=== PATIENT | female | born 1980 | race Caucasian/White ===

== ENCOUNTER → 2018-04-03 14:41 | Outpatient (CLI) | payer BC, SELFPAY ==
[2018-04-11 13:00] LABS: HPV Reflexed? NOT INDICATED
== END ==
PROVIDERS: Visit Provider Obstetrics & Gynecology
DX: Z12.4 Encounter for screening for malignant neoplasm of cervix (principal)
CPT/HCPCS: 88175; G0145

== ENCOUNTER 2024-09-29 10:55 | Emergency (ER) | payer BC, SELFPAY ==
[2024-09-29 10:55] VITALS: BP 147/84; PULSE 100; RESP 16; TEMP 36.8; O2SAT 100; BMI 24.8
--- NOTE | 2024-09-29 11:14 | EKG12_ITS ---
Test Reason : CHESTPAIN Blood Pressure : */* mmHG Vent. Rate : 95 BPM Atrial Rate : 95 BPM P-R Int : 140 ms QRS Dur : 78 ms QT Int : 360 ms P-R-T Axes : 59 71 57 degrees QTcB Int : 452 ms Normal sinus rhythm Normal ECG Confirmed by ANDREIA SOTO, AMANDA ([id number]), technical writer and editor TORI HINES ([id number]) on 10/01/2024 2:15:24 PM Referred By: Leandro Malagon Confirmed By: AMANDA BOSWELL MD
--- NOTE | 2024-09-29 11:14 | ED.VIS.CHEST ---
HPI History of Present Illness Chief Complaint: Chest Pain Informant: patient and spouse/S.O. Narrative Narrative: 44-year-old female presenting to the emergency room for chest discomfort. Patient states on Saturday she had an episode of vomiting. The week before that she felt generalized fatigue and not well. She states that she went to urgent care was told because she was experiencing some epigastric upper chest discomfort she come to emergency. She did not come until today. Patient states she feels her heart beating strongly and fast. She denies any pleuritic pain. No diarrhea. No further vomiting. She is otherwise been eating okay. She states that she is otherwise healthy not taking any current medications. No DVT PE risk factors. No reported fever. PFSH PFSH Medical History no medical history Home Medications ?Medication ?Instructions ?Recorded ?Last Taken ?Type famotidine 20 mg tablet (Pepcid) 20 mg PO BID 14 days #28 tabs 09/29/24 Unknown Rx Allergy/AdvReac Type Severity Reaction Status Date / Time No Known Allergies Allergy Verified 09/29/24 10:55 Family History no significant family his Surgical History no surgical history Social History Smoking Status: Never smoker ROS ROS ED ROS Narrative Generalized fatigue Constitutional Constitutional ED: Denies chills or weight loss Eyes Eyes: Denies change in vision or diplopia ENT ENT ED: Denies ear pain, rhinorrhea or sore throat Cardiovascular Cardiovascular: Reports chest pain and racing heartbeat; Denies orthopnea or palpitations Respiratory/Chest Respiratory/Chest: Denies cough, dyspnea or orthopnea Gastrointestinal Gastrointestinal: Reports abdominal pain, nausea and vomiting; Denies diarrhea Genitourinary Genitourinary ED: Denies dysuria, hematuria or urinary frequency Musculoskeletal Musculoskeletal: Denies arthralgias or myalgias Integumentary Denies abscess or rash Neurologic Neurologic: Denies headache(s) or weakness Psychiatric Psychiatric: Denies anxiety, depression, suicidal ideation or suicidal thoughts Endocrine Endocrinology: Denies polydipsia, polyphagia or polyuria Allergic/Immunologic Allergic/Immunologic ED: Denies mouth swelling, tongue swelling or urticaria EXAM Physical Exam Const Vital Signs: 09/29/24 10:55 09/29/24 11:09 09/29/24 12:55 Temperature 98.3 F Temperature Source Oral Pulse Rate 100 89 Respiratory Rate 16 Respiratory Effort Normal Non-Labored Blood Pressure 147/84 H 138/72 H Blood Pressure Mean 105 94 Pulse Ox 100 98 Oxygen Delivery Method Room Air 09/29/24 14:01 Temperature 97.6 F L Temperature Source Pulse Rate 89 Respiratory Rate 18 Respiratory Effort Blood Pressure 138/72 H Blood Pressure Mean 94 Pulse Ox 98 Oxygen Delivery Method MDM MDM MDM Narrative Medical decision making narrative: Differential diagnosis includes but not limited to esophagitis acute coronary syndrome pulmonary embolism aortic dissection pneumonia pleural effusion pleurisy pericarditis gastritis pancreatitis EKG is normal sinus rhythm ventricular rate of 95 bpm. Troponin is normal at less than 3 lipase 37 normal LFTs. BMP with a potassium 3.4 normal creatinine. Hemoglobin 11.1 normal white count 9.6. D-dimer is elevated 1.39. Because of the chest pain and the elevated D-dimer a CTA of the chest was obtained which is negative for pulmonary embolism. Please see radiologist read for full details including discussion of pulmonary nodules. Difficult to say exactly what is causing the patient's symptoms better do not see any emergent cause at this time. Not seeing evidence of dissection embolism cardiac dysrhythmia ACS pneumonia effusion. We talked about taking a Pepcid twice a day and monitoring for symptoms and follow-up or return if worsening or concerns patient and her are comfortable with this plan History & Record Review Discussion w/independent historian: Patient and Significant other Lab Data Attestation: I reviewed the patient's lab results. Labs: Laboratory Results - last 24 hr 09/29/24 11:07 WBC 9.6 RBC 4.07 L Hgb 11.1 L Hct 34.2 L MCV 84.0 MCH 27.3 MCHC 32.5 RDW Std Deviation 42.4 RDW Coeff of Matthew 13.9 Plt Count 466 H MPV 9.8 Immature Gran % (Auto) 0.600 Neut % (Auto) 78.7 H Lymph % (Auto) 15.9 L [place] % (Auto) 3.8 Eos % (Auto) 0.4 Baso % (Auto) 0.6 Absolute Neuts (auto) 7.5 Absolute Lymphs (auto) 1.52 Nucleated RBC % 0 D-Dimer Quant (PE/DVT) 1.39 H* Sodium 141 Potassium 3.4 L Chloride 110 H Carbon Dioxide 27.0 Anion Gap 5 BUN 9 Creatinine 0.89 Estim Creat Clear Calc 75.51 Est GFR (MDRD) Af Amer 89 Est GFR (MDRD) Non-Af 74 BUN/Creatinine Ratio 10.2 Glucose 93 Calcium 8.9 Total Bilirubin 0.40 Direct Bilirubin 0.10 AST 24 ALT 40 Alkaline Phosphatase 90 Troponin I High Sens < 3 L Total Protein 7.9 Albumin 3.5 Globulin 4.4 H Lipase 37 Radiography Diagnostic Testing: Clinical Impression(s) from Imaging Studies Chest X-Ray 09/29/24 11:22 IMPRESSION: Normal x-ray examination of the chest. Electronically Signed: Chance Duffy MD at 12:03 EST , Chest CTA 09/29/24 11:43 IMPRESSION: No evidence of pulmonary embolism. Small pulmonary nodules measuring up to 5 mm in the right lower lobe. Fleischner Society Guidelines suggest no follow-up is necessary for patients with a low or high risk of malignancy. Electronically Signed: Saranya Benítez MD at 12:45 EST , EKG Initial EKG: Attestation: I personally reviewed and interpreted this EKG as follows: Comments: Normal sinus rhythm ventricular rate of 95 bpm. Discharge Plan Triage Chief Complaint: Chest Pain ED Provider: Leandro Malagon Dx/Rx/DC Orders Clinical Impression: Chest pain Instructions: ED Chest Pain, Noncardiac Prescriptions: New famotidine [Pepcid] 20 mg tablet 20 mg PO BID 14 Days Qty: 28 0RF Primary Care Provider: Care Physician,No Primary Referrals: Care Physician,No Primary [Primary Care Provider] - Activity Restrictions/Additional Instructions: Please monitor the stool to see if it becomes black or tarry. I would recommend Pepcid twice a day for 1 to 2 weeks. If new symptoms are worsening please return to emergency or follow-up with primary care Print Language: Other Disposition Disposition: Home, Self Care Discharge Date/Time: 09/29/24 14:10
--- NOTE | 2024-09-29 11:22 | RAD_ITS ---
STUDY: X-RAY CHEST REASON FOR EXAM: Female, 44 years old. chest pain TECHNIQUE: PA and lateral views of the chest. COMPARISON: None. FINDINGS: The lungs are clear and expanded. There is no demonstrated pleural abnormality. Normal size heart. Normal mediastinum and ryann. Normal visualized pulmonary arteries. Normal visualized aortic arch and descending thoracic aorta. Normal visualized thoracic spine. Normal visualized ribs, clavicles, and shoulders. There is no demonstrated abnormality of the visualized soft tissue structures of the upper abdomen. RAD/Chest PA and Lateral IMPRESSION: Normal x-ray examination of the chest. Electronically Signed: Chance Duffy MD at 12:03 [facility] ,
[2024-09-29 11:23] LABS: Absolute Lymphocyte Count 1.52 X10^3/uL (0.83-4.51); Absolute Neutrophil Count 7.5 X10^3/uL (2.0-7.7); Basophil# 0.06 X10^3/uL; Basophil% 0.6 % (0-1); Eosinophil# 0.04 X10^3/uL; Eosinophils% 0.4 % (0-5); Hematocrit 34.2 % (37-47); Hemoglobin 11.1 g/dL (12.0-15.0); Lymphocyte # 1.52 X10^3/ul (0.83-4.51); Lymphocyte % 15.9 % (19-41); Mean Corp Hgb Conc 32.5 g/dL (32-36); Mean Corpuscular Hgb 27.3 pg (27.0-32.0); Mean Platelet Vol. 9.8 fl (6.2-12.0); Monocyte# 0.36 X10^3/uL; Monocyte% 3.8 % (0-10); NRBC Flagged by Analyzer 0 % (0-5); Neutrophil # 7.52 X10^3/uL (2.7-7.7); Neutrophil % 78.7 % (47-70); Platelet Count 466 K/mm3 (150-450); RBC Distribution Width CV 13.9 % (11.6-14.6); RBC Distribution Width SD 42.4 fl (35.1-43.9); Red Blood Count 4.07 M/mm3 (4.2-5.4); White Blood Count 9.6 K/mm3 (4.4-11.0)
[2024-09-29 11:38] LABS: D-Dimer Quantitative (DVT/PE) 1.39 FEU/ug/m (0.27-0.49)
[2024-09-29 11:41] LABS: AST(SGOT) 24 U/L (15-37); Alanine Aminotransfer ALT/SGPT 40 U/L (13-56); Albumin, Serum 3.5 g/dL (3.2-5.0); Alkaline Phosphatase 90 U/L (45-117); Anion Gap 5 (5-15); BUN 9 mg/dL (7-18); BUN/Creat Ratio 10.2 RATIO (10-20); Calcium,Total 8.9 mg/dL (8.5-10.1); Chloride 110 mmol/L (98-107); Creatinine, Serum 0.89 mg/dL (0.55-1.02); EST Glomerular Filtration Rate 74 mL/min (>60); Est Glom Filt Rate - Afr Amer 89 mL/min (>60); Estimated Creatinine Clearance 75.51 ml/min; Globulin 4.4 g/dL (2.2-4.2); Glucose 93 mg/dL (74-106); Lipase 37 U/L (13-75); Potassium 3.4 mmol/L (3.5-5.1); Protein, Total 7.9 g/dL (6.4-8.2); Sodium Level 141 mmol/L (136-145); Troponin-I HS < 3 pg/mL (3.0-54.0)
--- NOTE | 2024-09-29 11:43 | CT_ITS ---
HISTORY: pulmonary embolism, elevated d dimer. TECHNIQUE: CT angiogram of the chest was performed after the intravenous administration of 1 mL Isovue-370. Post-processing of the angiographic images was performed with multiplanar reformation and 3D reconstruction. Individualized dose optimization techniques were used for this CT. 1075 images. COMPARISON: XR same day. FINDINGS: CENTRAL AIRWAYS: Patent. LUNGS: Mild dependent atelectasis. 3 mm right upper lobe pleural-based nodule. Noncalcified nodules measuring up to 5 mm in the right lower lobe. PLEURA: No pneumothorax or significant pleural effusion. HEART/PERICARDIUM: Heart within normal limits in size. No pericardial effusion. PULMONARY ARTERIES: No filling defect. AORTA/VESSELS: No thoracic aortic aneurysm or dissection flap. MEDIASTINUM/CHENG: No pathologically enlarged lymph nodes. OSSEOUS STRUCTURES: Intact. UPPER ABDOMEN: Unremarkable. CT/CTA Chest W/WO Contrast IMPRESSION: No evidence of pulmonary embolism. Small pulmonary nodules measuring up to 5 mm in the right lower lobe. Fleischner Society Guidelines suggest no follow-up is necessary for patients with a low or high risk of malignancy. Electronically Signed: Saranya Benítez MD at 12:45 EST ,
[2024-09-29 12:55] VITALS: BP 138/72; PULSE 89; O2SAT 98
[2024-09-29 14:01] VITALS: BP 138/72; PULSE 89; RESP 18; TEMP 36.4; O2SAT 98
--- NOTE | 2024-09-29 15:46 | CM.ED ---
Social Work Reason for visit: No PCP SW introduced self and explained role at hospital. Patient verified that she does not currently have a PCP. [facility] provider list given to patient. No further needs identified. [place], [employer], [employer]OR
== END 2024-09-29 14:10 | disposition home or self-care (01) ==
PROVIDERS: Emergency Provider Emergency Medicine; Referring Provider Emergency Medicine; Visit Provider Emergency Medicine
DX: R07.9 Chest pain, unspecified (principal)
CPT/HCPCS: 71046; 71275; 80048; 80076; 83690; 84484; 85025; 85379; 93005; 99284; Q9967; A4216

== ENCOUNTER → 2025-02-05 | Outpatient (CLI) | payer BC, SELFPAY ==
[2025-02-05 10:47] LABS: Absolute Lymphocyte Count 1.75 X10^3/uL (0.83-4.51); Basophil# 0.05 X10^3/uL; Basophil% 0.9 % (0-1); Eosinophil# 0.06 X10^3/uL; Eosinophils% 1.1 % (0-5); Hematocrit 35.5 % (37-47); Hemoglobin 11.2 g/dL (12.0-15.0); Lymphocyte # 1.75 X10^3/ul (0.83-4.51); Lymphocyte % 33.2 % (19-41); Mean Corp Hgb Conc 31.5 g/dL (32-36); Mean Corpuscular Hgb 25.3 pg (27.0-32.0); Mean Corpuscular Volume 80.3 fL (81-99); Mean Platelet Vol. 10.3 fl (6.2-12.0); Monocyte# 0.37 X10^3/uL; NRBC Flagged by Analyzer 0 % (0-5); Neutrophil # 3.02 X10^3/uL (2.7-7.7); Neutrophil % 57.4 % (47-70); Platelet Count 372 K/mm3 (150-450); RBC Distribution Width CV 14.6 % (11.6-14.6); RBC Distribution Width SD 42.7 fl (35.1-43.9); Red Blood Count 4.42 M/mm3 (4.2-5.4); White Blood Count 5.3 K/mm3 (4.4-11.0)
[2025-02-05 12:27] LABS: ALB/GLOB Ratio 1.4 RATIO (0.9-2.4); AST(SGOT) 15 U/L (<=31); Alanine Aminotransfer ALT/SGPT 11 U/L (<=34); Albumin, Serum 4.6 g/dL (3.5-5.0); Alkaline Phosphatase 76 U/L (35-104); Anion Gap 11 (5-15); BUN 14 mg/dL (4-19); BUN/Creat Ratio 19.8 RATIO (10-20); Calcium,Total 9.6 mg/dL (7.6-11.0); Carbon Dioxide 24.5 mmol/L (21.0-32.0); Chloride 105 mmol/L (98-108); Cholesterol 220 mg/dL (<=200); Creatinine, Serum 0.72 mg/dL (0.70-1.20); EST Glomerular Filtration Rate 105 (>60); Globulin 3.3 g/dL (2.2-4.2); Glucose 89 mg/dL (70-99); High Density Lipoprotein 60 mg/dL; Low Density Lipoprotein Calc. 144 mg/dL; Potassium 4.1 mmol/L (3.3-5.1); Protein, Total 7.9 g/dL (5.9-8.4); Sodium Level 140 mmol/L (133-145); Total Bilirubin 0.35 mg/dL (0.00-1.30); Triglycerides 82 mg/dL; Very Low Density Lipoprotein 16 mg/dL (5-40); cholesterol:hdl ratio screen 3.68
[2025-02-08 21:14] LABS: Ferritin 9 ng/mL (22-378); Iron Binding Capacity,Total 401 ug/dL (250-450)
[2025-02-08 21:49] LABS: Iron 42 ug/dL (50-170); Iron Binding Capacity,Unsat 359 ug/dL (228-428); PERCENT IRON SATURATION 10.5 % (13-59)
== END | disposition home or self-care (01) ==
LOC: MTLAB 09:10
PROVIDERS: PCP Internal Medicine; Referring Provider Internal Medicine; Visit Provider Internal Medicine
DX: Z00.00 Encounter for general adult medical examination without abnormal findings (principal); D64.9 Anemia, unspecified
CPT/HCPCS: 36415; 80053; 80061; 82728; 83540; 83550; 85025